=== PATIENT | female | born 1950 | race Caucasian/White ===

== ENCOUNTER → 2020-11-19 | Outpatient (CLI) | payer MEDICARE, OTHER ==
[~2020-11-19] MED LIST: CALCAVITDA; LEVSOD88; Voltaren100 GM
== END ==
LOC: LAB SHORT 15:50 → LAB 15:50
DX: D48.5 Neoplasm of uncertain behavior of skin (principal)
CPT/HCPCS: 88304

== ENCOUNTER 2024-12-27 22:06 | Inpatient (IN) | payer MEDICARE, OTHER ==
[~2024-12-27] VITALS: Ht 160 cm; Wt 62.0 kg
[~2024-12-27 22:06] MED LIST changes: +AMOCLA875 PO; +CALCIUM 600 MG1 EA18 PO; +SYNTHROID88 MCG PO
[2024-12-27 22:43] LABS: BASOPHILS ABSOLUTE AUTO 0.07 K/mm3 (0.00-0.23); BASOPHILS PERCENT AUTO 0 % (0-2); EOSINOPHILS ABSOLUTE AUTO 0.28 K/mm3 (0.00-0.68); EOSINOPHILS PERCENT AUTO 2 % (0-6); Hematocrit 39.0 % (33.0-51.0); Hemoglobin 13.1 g/dL (11.5-16.0); IMMATURE GRAN ABSOLUTE AUTO 0.09 K/mm3 (0.00-0.10); IMMATURE GRAN PERCENT AUTO 1 % (0-1); LYMPHOCYTES ABSOLUTE AUTO 1.86 K/mm3 (0.84-5.20); LYMPHOCYTES PERCENT AUTO 11 % (21-46); MONOCYTES ABSOLUTE AUTO 1.33 K/mm3 (0.16-1.47); MONOCYTES PERCENT AUTO 8 % (4-13); Mean Corpuscular HGB Conc 33.6 g/dL (31.5-36.5); Mean Corpuscular Volume 91 fL (80-100); NEUTROPHILS ABSOLUTE AUTO 14.02 K/mm3 (1.96-9.15); NEUTROPHILS PERCENT AUTO 80 % (41-73); NRBC ABSOLUTE 0.00 K/mm3 (0.00-0.02); NRBC Auto 0.0 /100 WBC (0.0-0.2); Platelet Count 263 K/mm3 (150-400); RDW Coefficient Variation 12.3 % (11.7-14.2); RDW Standard Deviation 41.3 fL (35.1-46.3)
[2024-12-27 23:05] LABS: Alanine Aminotransfer (ALT/SGP 16.0 U/L (12-78); Albumin, Blood 3.1 g/dL (3.4-5.0); Albumin/Globulin Ratio 0.8 (0.8-1.8); Anion Gap 10.0 mmol/L (3-11); Aspartate Aminotrans (AST/SGOT 15.0 U/L (12-37); Bilirubin, Total 0.7 mg/dL (0.1-1.0); Blood Urea Nitrogen 15.0 mg/dL (8-24); CO2, Blood 24.0 mmol/L (21-32); Calcium, Blood 8.5 mg/dL (8.5-10.1); Chloride, Blood 102.0 mmol/L (98-108); Creatinine, Blood 1.33 mg/dL (0.40-1.00); Globulin, Blood 4.1 g/dL (2.2-4.0); Glucose, Blood 124.0 mg/dL (70-99); Potassium, Blood 3.4 mmol/L (3.5-5.5); Sodium, Blood 133.0 mmol/L (136-145); Total Protein, Blood 7.2 g/dL (6.4-8.2)
[2024-12-27] MEDS ORDERED: Piperacillin/Tazobactam Sod 3.375 GM in NS 100 ML IV ONE (23:25)
[2024-12-27] MEDS ORDERED: NS 1,000 ML IV SCH (23:25)
[2024-12-27] MEDS ORDERED: FLU VACC TS2025(65UP)/MF59C/PF 45 MCG/0.5 ML SYRINGE IM SCH (23:45)
[2024-12-27] MEDS ORDERED: FentaNYL Citrate 50 MCG/ML 2 ML Injection IV PRN (23:45)
[2024-12-28] MEDS ORDERED: Ondansetron HCl 2 MG / ML 2ML Vial IV PRN (00:05)
[2024-12-28] MEDS ORDERED: Naloxone HCl 0.4MG / ML 1ML Vial IV PRN (00:05)
[2024-12-28] MEDS ORDERED: Piperacillin/Tazobactam Sod 3.375 GM in NS 100 ML IV SCH (06:00)
[2024-12-28] MEDS ORDERED: Lactobacil 2-S.Thermo-Bifido 1 1 Cap PO SCH (09:00)
[2024-12-28 10:46] LABS: BASOPHILS ABSOLUTE AUTO 0.05 K/mm3 (0.00-0.23); BASOPHILS PERCENT AUTO 0 % (0-2); EOSINOPHILS ABSOLUTE AUTO 0.22 K/mm3 (0.00-0.68); EOSINOPHILS PERCENT AUTO 2 % (0-6); Hematocrit 36.8 % (33.0-51.0); Hemoglobin 12.4 g/dL (11.5-16.0); IMMATURE GRAN ABSOLUTE AUTO 0.09 K/mm3 (0.00-0.10); IMMATURE GRAN PERCENT AUTO 1 % (0-1); LYMPHOCYTES ABSOLUTE AUTO 1.36 K/mm3 (0.84-5.20); LYMPHOCYTES PERCENT AUTO 11 % (21-46); MONOCYTES ABSOLUTE AUTO 0.74 K/mm3 (0.16-1.47); MONOCYTES PERCENT AUTO 6 % (4-13); Mean Corpuscular HGB Conc 33.7 g/dL (31.5-36.5); Mean Corpuscular Volume 93 fL (80-100); NEUTROPHILS ABSOLUTE AUTO 10.48 K/mm3 (1.96-9.15); NEUTROPHILS PERCENT AUTO 81 % (41-73); NRBC ABSOLUTE 0.00 K/mm3 (0.00-0.02); NRBC Auto 0.0 /100 WBC (0.0-0.2); Platelet Count 226 K/mm3 (150-400); RDW Coefficient Variation 12.5 % (11.7-14.2); RDW Standard Deviation 42.6 fL (35.1-46.3)
[2024-12-28 11:12] LABS: Alanine Aminotransfer (ALT/SGP 15.0 U/L (12-78); Albumin, Blood 2.8 g/dL (3.4-5.0); Albumin/Globulin Ratio 0.7 (0.8-1.8); Anion Gap 8.0 mmol/L (3-11); Aspartate Aminotrans (AST/SGOT 12.0 U/L (12-37); Bilirubin, Total 0.7 mg/dL (0.1-1.0); Blood Urea Nitrogen 12.0 mg/dL (8-24); CO2, Blood 27.0 mmol/L (21-32); Calcium, Blood 8.2 mg/dL (8.5-10.1); Chloride, Blood 110.0 mmol/L (98-108); Creatinine, Blood 1.32 mg/dL (0.40-1.00); Globulin, Blood 3.8 g/dL (2.2-4.0); Glucose, Blood 96.0 mg/dL (70-99); Magnesium, Blood 2.1 mg/dL (1.6-2.4); Potassium, Blood 4.2 mmol/L (3.5-5.5); Sodium, Blood 141.0 mmol/L (136-145); Thyroid Stimulating Hormone 0.808 uIU/mL (0.360-4.800); Total Protein, Blood 6.6 g/dL (6.4-8.2)
[2024-12-28 14:01] VITALS: BP 138/67
--- NOTE | 2024-12-28 14:37 | NUR ---
ADMIT PATIENT TO ROOM 231, AOX4, IND IN ROOM. IVF RUNNING. DENIES PAIN AT THIS TIME. CL DIET ORDERED. VSS. PLAN FOR IV ABX AND FLUIDS. CALL LIGHT IN REACH.
[2024-12-28] MEDS ORDERED: NS 1,000 ML IV SCH (15:05)
--- NOTE | 2024-12-28 18:10 | NUR ---
SHIFT SUMMARY PATIENT NEW ADMIT FOR DIVERTICULILTIS. CL DIET ORDERED. IV ABX, AND IVF RUNNING. PATIENT IND IN ROOM, VOIDING, PASSING GAS, DENIES N/V. REPORTS 04/20 PAIN. ABLE TO MAKE NEEDS KNOWN. VSS. CALL LIGHT IN REACH.
[2024-12-28 19:37] VITALS: BP 139/70
[2024-12-29 04:49] VITALS: BP 121/64
[2024-12-29 04:57] LABS: BASOPHILS ABSOLUTE AUTO 0.06 K/mm3 (0.00-0.23); BASOPHILS PERCENT AUTO 1 % (0-2); EOSINOPHILS ABSOLUTE AUTO 0.40 K/mm3 (0.00-0.68); EOSINOPHILS PERCENT AUTO 4 % (0-6); Hematocrit 32.7 % (33.0-51.0); Hemoglobin 11.0 g/dL (11.5-16.0); IMMATURE GRAN ABSOLUTE AUTO 0.10 K/mm3 (0.00-0.10); IMMATURE GRAN PERCENT AUTO 1 % (0-1); LYMPHOCYTES ABSOLUTE AUTO 1.48 K/mm3 (0.84-5.20); LYMPHOCYTES PERCENT AUTO 13 % (21-46); MONOCYTES ABSOLUTE AUTO 0.74 K/mm3 (0.16-1.47); MONOCYTES PERCENT AUTO 7 % (4-13); Mean Corpuscular HGB Conc 33.6 g/dL (31.5-36.5); Mean Corpuscular Volume 92 fL (80-100); NEUTROPHILS ABSOLUTE AUTO 8.46 K/mm3 (1.96-9.15); NEUTROPHILS PERCENT AUTO 75 % (41-73); NRBC ABSOLUTE 0.00 K/mm3 (0.00-0.02); NRBC Auto 0.0 /100 WBC (0.0-0.2); Platelet Count 213 K/mm3 (150-400); RDW Coefficient Variation 12.4 % (11.7-14.2); RDW Standard Deviation 41.8 fL (35.1-46.3)
[2024-12-29 05:41] LABS: Anion Gap 9.0 mmol/L (3-11); Blood Urea Nitrogen 10.0 mg/dL (8-24); CO2, Blood 24.0 mmol/L (21-32); Calcium, Blood 7.2 mg/dL (8.5-10.1); Chloride, Blood 110.0 mmol/L (98-108); Creatinine, Blood 1.36 mg/dL (0.40-1.00); Glucose, Blood 96.0 mg/dL (70-99); Potassium, Blood 3.8 mmol/L (3.5-5.5); Sodium, Blood 139.0 mmol/L (136-145)
--- NOTE | 2024-12-29 06:05 | NUR ---
NOC SUMMARY- PT REPORTS ONLY MINOR DISCOMFORT. PT HAS BEEN RESTING COMFORTABLY. PT TOLERATING PO INTAKE. PT REPORTS SEVERAL SMALL LOOSE STOOLS. PT REPORTS HAVING INTERMITENT PERIODS OF DIARRHEA FOR SEVERAL YEARS. PT REPORTS SHE USES IMMODIUM AT HOME DURING EPISODES OF DIARRHEA. PT VOIDING WELL. NO NEW ISSUES. CALL LIGHT IN REACH.
[2024-12-29 07:39] VITALS: BP 127/63
[2024-12-29] MEDS ORDERED: NS 250 ML IV PRN (14:15)
--- NOTE | 2024-12-29 14:30 | NUR ---
CARE ASSUMED OF PT. PT RESTING IN BED AWAKE AND CONVERSING WITH STAFF.
[2024-12-29 15:09] VITALS: BP 126/67
--- NOTE | 2024-12-29 17:25 | NUR ---
SHIFT SUMMARY ADMITTED ON 12/28 FOR SIGMOID DIVERTICULITIS. NO ACUTE CHANGES THIS SHIFT. A&O x4, VSS, HRR, LUNGS CLEAR. IND IN ROOM, CALLS APPROPRIATELY, MAKES NEEDS KNOWN. ADVANCED TO FULL LIQUID DIET TODAY, TOLERATING WELL. SEVERAL LOOSE BM'S TODAY, REPORTS INTERMITTENT DIARRHEA BASELINE AT HOME. VOIDING. STATES NO PAIN OR DISCOMFORT. STATES "ITCHY BUMPS" ON BACK, ABDOMEN, & LEGS TODAY, MD YOUNG NOTIFIED, CLARATIN ORDER RECIEVED & GIVEN. AMBULATED SEVERAL TIMES IN ROOM & HALLWAY. CURRENTLY RESTING IN BED, CALL LIGHT WITHIN REACH.
[2024-12-29 19:57] VITALS: BP 142/65
[2024-12-30 04:21] VITALS: BP 127/70
--- NOTE | 2024-12-30 04:26 | NUR ---
NOC SUMMARY- PT DENIES PAIN OR DISCOMFORT. PT REPORTS HAVING SEVERAL EPISODES OF DIARRHEA. PT VOIDING WELL. PT HAS BEEN ABLE TO REST COMFORTABLY. NO NEW ISSUES. CALL LIGHT IN REACH.
[2024-12-30 05:49] LABS: BASOPHILS ABSOLUTE AUTO 0.05 K/mm3 (0.00-0.23); BASOPHILS PERCENT AUTO 1 % (0-2); EOSINOPHILS ABSOLUTE AUTO 0.39 K/mm3 (0.00-0.68); EOSINOPHILS PERCENT AUTO 4 % (0-6); Hematocrit 34.3 % (33.0-51.0); Hemoglobin 11.6 g/dL (11.5-16.0); IMMATURE GRAN ABSOLUTE AUTO 0.05 K/mm3 (0.00-0.10); IMMATURE GRAN PERCENT AUTO 1 % (0-1); LYMPHOCYTES ABSOLUTE AUTO 1.85 K/mm3 (0.84-5.20); LYMPHOCYTES PERCENT AUTO 19 % (21-46); MONOCYTES ABSOLUTE AUTO 0.66 K/mm3 (0.16-1.47); MONOCYTES PERCENT AUTO 7 % (4-13); Mean Corpuscular HGB Conc 33.8 g/dL (31.5-36.5); Mean Corpuscular Volume 93 fL (80-100); NEUTROPHILS ABSOLUTE AUTO 6.71 K/mm3 (1.96-9.15); NEUTROPHILS PERCENT AUTO 69 % (41-73); NRBC ABSOLUTE 0.00 K/mm3 (0.00-0.02); NRBC Auto 0.0 /100 WBC (0.0-0.2); Platelet Count 243 K/mm3 (150-400); RDW Coefficient Variation 12.3 % (11.7-14.2); RDW Standard Deviation 41.8 fL (35.1-46.3)
[2024-12-30 06:06] LABS: Anion Gap 8.0 mmol/L (3-11); Blood Urea Nitrogen 8.0 mg/dL (8-24); CO2, Blood 26.0 mmol/L (21-32); Calcium, Blood 7.5 mg/dL (8.5-10.1); Chloride, Blood 112.0 mmol/L (98-108); Creatinine, Blood 1.4 mg/dL (0.40-1.00); Glucose, Blood 98.0 mg/dL (70-99); Potassium, Blood 3.9 mmol/L (3.5-5.5); Sodium, Blood 142.0 mmol/L (136-145)
[2024-12-30 07:37] VITALS: BP 137/70
[2024-12-30 15:34] VITALS: BP 135/82
--- NOTE | 2024-12-30 19:27 | NUR ---
SHIFT SUMMARY ADMITTED ON 12/28 FOR SIGMOID DIVERTICULITIS. A&O x4, VSS, HRR, LUNGS CLEAR. STATES NO PAIN, SLIGHT ABD DISCOMFORT. TOLERATING REGULAR DIET WELL, NO NAUSEA. INDEPENDENT IN ROOM. STATES SEVERAL DIARRHEA EPISODES TODAY, HX. INTERMITTENT DIARRHEA THE PAST SEVERAL YEARS. STATES "ITCHY BUMPS" ON CHEST, BACK, AND LEGS, CLARATIN ADMINISTRATION CONTINUED TODAY, RESOLVED ITCHINESS. ABLE TO MAKE NEEDS KNOWN. PLAN TO DC TOMORROW. CURRENTLY RESTING IN BED, CALL LIGHT WITHIN REACH.
[2024-12-30 19:38] VITALS: BP 134/70
[2024-12-31 03:59] VITALS: BP 120/70
[2024-12-31 05:22] LABS: BASOPHILS ABSOLUTE AUTO 0.05 K/mm3 (0.00-0.23); BASOPHILS PERCENT AUTO 1 % (0-2); EOSINOPHILS ABSOLUTE AUTO 0.44 K/mm3 (0.00-0.68); EOSINOPHILS PERCENT AUTO 4 % (0-6); Hematocrit 35.8 % (33.0-51.0); Hemoglobin 11.9 g/dL (11.5-16.0); IMMATURE GRAN ABSOLUTE AUTO 0.05 K/mm3 (0.00-0.10); IMMATURE GRAN PERCENT AUTO 1 % (0-1); LYMPHOCYTES ABSOLUTE AUTO 2.12 K/mm3 (0.84-5.20); LYMPHOCYTES PERCENT AUTO 20 % (21-46); MONOCYTES ABSOLUTE AUTO 0.60 K/mm3 (0.16-1.47); MONOCYTES PERCENT AUTO 6 % (4-13); Mean Corpuscular HGB Conc 33.2 g/dL (31.5-36.5); Mean Corpuscular Volume 92 fL (80-100); NEUTROPHILS ABSOLUTE AUTO 7.27 K/mm3 (1.96-9.15); NEUTROPHILS PERCENT AUTO 69 % (41-73); NRBC ABSOLUTE 0.00 K/mm3 (0.00-0.02); NRBC Auto 0.0 /100 WBC (0.0-0.2); Platelet Count 274 K/mm3 (150-400); RDW Coefficient Variation 12.3 % (11.7-14.2); RDW Standard Deviation 41.0 fL (35.1-46.3)
[2024-12-31 05:41] LABS: Anion Gap 7.0 mmol/L (3-11); Blood Urea Nitrogen 10.0 mg/dL (8-24); CO2, Blood 28.0 mmol/L (21-32); Calcium, Blood 7.8 mg/dL (8.5-10.1); Chloride, Blood 110.0 mmol/L (98-108); Creatinine, Blood 1.54 mg/dL (0.40-1.00); Glucose, Blood 98.0 mg/dL (70-99); Potassium, Blood 4.0 mmol/L (3.5-5.5); Sodium, Blood 141.0 mmol/L (136-145)
--- NOTE | 2024-12-31 05:41 | NUR ---
AEROSPACE QUALITY ENGINEER SUMMARY NO ACUTE CHANGES THIS SHIFT. PT TOLERATING DIET AND HAS DENIED ANY ABD PAIN THROUGH THE NIGHT. CONTINUES IV ZOSYN Q6 PER JUN. PT HOPING TO DISCHARGE LATER TODAY. VSS, DOUG.
[2024-12-31 07:26] VITALS: BP 137/72
[2024-12-31] MEDS ORDERED: VISBIOME 112.51 EACH PO (09:32)
[2024-12-31] MEDS ORDERED: ONDA4ODT MM (09:32)
[2024-12-31] MEDS ORDERED: AMOCLA500 PO (09:32)
--- NOTE | 2024-12-31 11:20 | NUR ---
DISCHARGE PATIENT VOIDING, HAVING BMS, TOLERATING PO INTAKE. WALKS HALLS, DENIES PAIN. PO ABX ORDERED. VSS. ALL DC INSTRUCITONS READ AND SIGNED. DIETARY INFORMATION IN PACKET, ALL MEDS FAXED TO [facility]. PATIENT LEAVES WITH SPOUSE TO PRIVATE CAR.
== END 2024-12-31 11:00 | disposition home or self-care (01) | DRG 392 ==
LOC: ER 22:06 → SURS 23:58 → ERHOLD 23:58 → SURS 12-28 13:53
PROVIDERS: Family Medicine; Student in an Organized Health Care Education/Training Program; ADMIT Student in an Organized Health Care Education/Training Program
DX: K57.32 Diverticulitis of large intestine without perforation or abscess without bleeding (principal); E87.1 Hypo-osmolality and hyponatremia; E87.6 Hypokalemia; D72.829 Elevated white blood cell count, unspecified; N18.31 Chronic kidney disease, stage 3a; E03.9 Hypothyroidism, unspecified; Z79.2 Long term (current) use of antibiotics; Z79.890 Hormone replacement therapy; Z79.899 Other long term (current) drug therapy; Z88.5 Allergy status to narcotic agent; Z85.850 Personal history of malignant neoplasm of thyroid; Z90.89 Acquired absence of other organs; Z98.890 Other specified postprocedural states; Z87.19 Personal history of other diseases of the digestive system; Z98.49 Cataract extraction status, unspecified eye
CPT/HCPCS: 36415; 80048; 80053; 83735; 84443; 85025; 96374; 99285-25; A9270; J2543; J3480; J7030

== ENCOUNTER 2025-01-29 22:28 | Emergency (ER) | payer MEDICARE, OTHER ==
[~2025-01-29] VITALS: Ht 162.6 cm; Wt 58.1 kg
[~2025-01-29 22:28] MED LIST changes: +AMOCLA500 PO; +ONDA4ODT MM; +VISBIOME 112.51 EACH PO
[2025-01-29 23:33] LABS: BASOPHILS ABSOLUTE AUTO 0.07 K/mm3 (0.00-0.23); BASOPHILS PERCENT AUTO 1 % (0-2); EOSINOPHILS ABSOLUTE AUTO 0.26 K/mm3 (0.00-0.68); EOSINOPHILS PERCENT AUTO 2 % (0-6); Hematocrit 41.9 % (33.0-51.0); Hemoglobin 14.0 g/dL (11.5-16.0); IMMATURE GRAN ABSOLUTE AUTO 0.04 K/mm3 (0.00-0.10); IMMATURE GRAN PERCENT AUTO 0 % (0-1); LYMPHOCYTES ABSOLUTE AUTO 2.14 K/mm3 (0.84-5.20); LYMPHOCYTES PERCENT AUTO 18 % (21-46); MONOCYTES ABSOLUTE AUTO 0.61 K/mm3 (0.16-1.47); MONOCYTES PERCENT AUTO 5 % (4-13); Mean Corpuscular HGB Conc 33.4 g/dL (31.5-36.5); Mean Corpuscular Volume 92 fL (80-100); NEUTROPHILS ABSOLUTE AUTO 8.56 K/mm3 (1.96-9.15); NEUTROPHILS PERCENT AUTO 73 % (41-73); NRBC ABSOLUTE 0.00 K/mm3 (0.00-0.02); NRBC Auto 0.0 /100 WBC (0.0-0.2); Platelet Count 260 K/mm3 (150-400); RDW Coefficient Variation 13.2 % (11.7-14.2); RDW Standard Deviation 43.8 fL (35.1-46.3)
[2025-01-29 23:35] LABS: Source, Urine Clean Catch
[2025-01-29 23:49] LABS: Bilirubin, Urine Neg (Neg); Glucose Qualitative, Urine Neg (Neg); Ketones, Urine Neg (Neg); Leukocyte Esterase, Urine 1+ (Neg); Protein, Urine Neg (Neg); Specific Gravity, Urine 1.010 (1.003-1.022); Urobilinogen, Urine NORM (Normal)
[2025-01-29 23:59] LABS: Color, Urine Yellow (P-Yellow)
[2025-01-30 00:01] LABS: Alanine Aminotransfer (ALT/SGP 21.0 U/L (12-78); Albumin, Blood 3.8 g/dL (3.4-5.0); Albumin/Globulin Ratio 1.0 (0.8-1.8); Anion Gap 8.0 mmol/L (3-11); Aspartate Aminotrans (AST/SGOT 21.0 U/L (12-37); Bilirubin, Total 0.7 mg/dL (0.1-1.0); Blood Urea Nitrogen 18.0 mg/dL (8-24); CO2, Blood 29.0 mmol/L (21-32); Calcium, Blood 9.3 mg/dL (8.5-10.1); Chloride, Blood 105.0 mmol/L (98-108); Creatinine, Blood 1.17 mg/dL (0.40-1.00); Globulin, Blood 3.7 g/dL (2.2-4.0); Glucose, Blood 105.0 mg/dL (70-99); Potassium, Blood 3.8 mmol/L (3.5-5.5); Sodium, Blood 138.0 mmol/L (136-145); Total Protein, Blood 7.5 g/dL (6.4-8.2)
[2025-01-30 00:02] LABS: Red Blood Cells, Urine Not Seen /hpf (0-2)
[2025-01-30 03:06] VITALS: BP 126/69
[2025-01-30] MEDS ORDERED: AMOCLA875 PO (03:13)
== END 2025-01-30 03:30 | disposition home or self-care (01) ==
LOC: ER 22:28
PROVIDERS: Physician Assistant
DX: K57.20 Diverticulitis of large intestine with perforation and abscess without bleeding (principal); N18.30 Chronic kidney disease, stage 3 unspecified; Z88.5 Allergy status to narcotic agent; Z79.890 Hormone replacement therapy; Z79.899 Other long term (current) drug therapy
CPT/HCPCS: 74177; 80053; 81001; 85025; 87086; 99284-25; A9270; Q9967

== ENCOUNTER 2025-03-19 05:52 | Day surgery (SDC) | payer MEDICARE, OTHER ==
[2025-03-19] VITALS (15 sets, daily range): BP systolic 109–157; BP diastolic 60–124
[~2025-03-19 05:52] MED LIST changes: -CALCIUM 600 MG1 EA18 PO; +CALCIUM CIT 311 EAC7 PO
--- NOTE | 2025-03-19 07:01 | NUR ---
Ambulatory in Day Surgery. Patient confirms NPO status and agrees with scheduled surgery. History, Chart, Medications and Allergies reviewed before start of procedure. Patient states colon prep results clear/Yellow. Patient States Post-Procedure ride home has been arranged.
--- NOTE | 2025-03-19 07:04 | NUR ---
03/19/25 0704 Tamar López CONFIRMED AND REVIEWED H&P, MEDCICATIONS, ALLERGIES, MEDICAL HISTORY, RESPIRATORY HISTORY, VITAL SIGNS, 3-LEAD EKG, CONSENTS, AND PHYSICIAN ORDERS. PATIENT CONFIRMS NPO STATUS AND AGREES WITH SCHEDULED PROCEDURE. MONITOR INTACT WITH CONTINUOUS PULSE OXIMETRY, CAPNOGRAPHY, 3-LEAD EKG, INTERMITTENT BP. SUPPLEMENTAL O2 TO BE TITRATED THROUGHOUT PROCEDURE TO MAINTAIN O2 SATURATION ABOVE 90%. PATIENT DETERMINED TO BE ASA APPROPRIATE FOR PROPOFOL SEDATION PRIOR TO START OF PROCEDURE BY DR. ROUSSEAU
== END 2025-03-19 23:38 | disposition home or self-care (01) ==
LOC: ORSCMMR 05:52 → ORD 07:30 → ORSCMMR 07:30
PROVIDERS: Surgery
PROC: 0DBM8ZX Excision of Descending Colon, Via Natural or Artificial Opening Endoscopic, Diagnostic (ICD-10-PCS; principal; 2025-03-19 07:30)
DX: K57.92 Diverticulitis of intestine, part unspecified, without perforation or abscess without bleeding (principal); D12.4 Benign neoplasm of descending colon; Z98.890 Other specified postprocedural states; N18.30 Chronic kidney disease, stage 3 unspecified; Z85.850 Personal history of malignant neoplasm of thyroid; Z79.899 Other long term (current) drug therapy; Z87.891 Personal history of nicotine dependence
CPT/HCPCS: 88305; J2704; J7120

== ENCOUNTER 2025-03-20 06:05 | Inpatient (IN) | payer MEDICARE, OTHER ==
[2025-03-20] VITALS (16 sets, daily range): BP systolic 107–156; BP diastolic 55–90
[~2025-03-20] VITALS: Ht 162.6 cm; Wt 57.2 kg
[2025-03-20] MEDS ORDERED: CeFAZolin Sodium 2,000 MG in NS 100 ML IV SCH (06:20)
[2025-03-20] MEDS ORDERED: Heparin Sodium,Porcine 5,000 UNIT/0.5 ML SDV SC SCH (06:20)
[2025-03-20] MEDS ORDERED: FentaNYL Citrate 50 MCG/ML 2 ML Injection ONE (07:04)
[2025-03-20] MEDS ORDERED: Metoclopramide HCl 5MG / ML 2ML Vial IV PRN (07:05)
[2025-03-20] MEDS ORDERED: Ondansetron HCl 2 MG / ML 2ML Vial IV PRN ×2 (07:05→11:20)
[2025-03-20] MEDS ORDERED: HydrALAZINE HCl 20 MG / ML 1ML Vial IV PRN (07:10)
[2025-03-20] MEDS ORDERED: FentaNYL Citrate 50 MCG/ML 2 ML Injection IV PRN ×2 (07:10)
[2025-03-20] MEDS ORDERED: ePHEDrine Sulfate 50 MG/ML 1ML Injection IV PRN (07:10)
[2025-03-20] MEDS ORDERED: Albuterol 2.5 MG/3 ML VIAL INH PRN (07:10)
[2025-03-20] MEDS ORDERED: Bupivacaine 0.5% HCl 5 MG/ML 30MLVIAL ONE (07:19)
[2025-03-20] MEDS ORDERED: Metoclopramide HCl 5MG / ML 2ML Vial ONE ×2 (08:05→10:59)
[2025-03-20] MEDS ORDERED: Rocuronium Bromide 10 MG/ML 5ML Injection IV ONE (08:05)
[2025-03-20] MEDS ORDERED: Ondansetron HCl 2 MG / ML 2ML Vial ONE (08:05)
[2025-03-20] MEDS ORDERED: Phenylephrine HCl 100 MCG/ML-NS 10MLSYR (1MG/10ML) ONE (08:05)
[2025-03-20] MEDS ORDERED: MetroNIDAZOLE 500MG/NS 100 ml 100 ML IV SCH (08:10)
[2025-03-20] MEDS ORDERED: Sugammadex Sodium 200 MG/2ML SDV (100 MG/ML) ONE (08:20)
[2025-03-20] MEDS ORDERED: ePHEDrine Sulfate 50 MG/ML 1ML Injection ONE (08:39)
[2025-03-20] MEDS ORDERED: HYDROmorphone HCl/Pf 1MG SYR ONE (08:56)
[2025-03-20] MEDS ORDERED: HYDROmorphone HCl/Pf 1MG SYR IV PRN (11:20)
[2025-03-20] MEDS ORDERED: FLU VACC TS2025(65UP)/MF59C/PF 45 MCG/0.5 ML SYRINGE IM SCH (11:35)
--- NOTE | 2025-03-20 13:59 | NUR ---
POST OP: REPORT RECEIVED FROM ETHANOL OPERATOR AT BEDSIDE. PT TO UNIT AT 1115, A/O, VSS. SURGICAL SITES WNL, SEPULVEDA DRAINING. PT ORIENTED TO ROOM AND CALL LIGHT IN REACH.
--- NOTE | 2025-03-20 18:55 | NUR ---
SUMMARY: NO ACUTE CHANGE SINCE POST OP. VSS, A/O. PT AMBULATING. PAIN APPEARS TO BE MANAGED. SEPULVEDA DC'D AND PT VOIDING. SURGICAL SITES WNL, NO CONCERNS. PLAN IS DC TOMORROW.
[2025-03-21 02:20] VITALS: BP 107/57
[2025-03-21 05:11] LABS: Hematocrit 35.0 % (33.0-51.0); Hemoglobin 11.8 g/dL (11.5-16.0); Mean Corpuscular HGB Conc 33.7 g/dL (31.5-36.5); Mean Corpuscular Volume 90 fL (80-100); NRBC ABSOLUTE 0.00 K/mm3 (0.00-0.02); NRBC Auto 0.0 /100 WBC (0.0-0.2); Platelet Count 206 K/mm3 (150-400); RDW Coefficient Variation 13.2 % (11.7-14.2); RDW Standard Deviation 43.2 fL (35.1-46.3)
[2025-03-21 05:27] LABS: Anion Gap 8.0 mmol/L (3-11); Blood Urea Nitrogen 15.0 mg/dL (8-24); CO2, Blood 27.0 mmol/L (21-32); Calcium, Blood 7.9 mg/dL (8.5-10.1); Chloride, Blood 99.0 mmol/L (98-108); Creatinine, Blood 1.09 mg/dL (0.40-1.00); Glucose, Blood 133.0 mg/dL (70-99); Magnesium, Blood 1.7 mg/dL (1.6-2.4); Potassium, Blood 3.9 mmol/L (3.5-5.5); Sodium, Blood 130.0 mmol/L (136-145)
--- NOTE | 2025-03-21 05:54 | NUR ---
SHIFT SUMMARY POD 1 S/P SIGMOID COLECTOMY. BRUISING NOTED X 4 WITH ABD INCISIONS; NO EXUDATE OR ODOR. PAIN MANAGED PER EMAR. JUAN C CL DIET, DENIES N/V. IS VOIDING AND IND IN ROOM. DENIES FLATUS. IV TO HAND PATENT/SL. IS A/OX4 WITH VSS, ON RA. ABLE TO MAKE NEEDS KNOWN. IS CURRENTLY RESTING IN BED WITH EYES CLOSED, RESP EVEN AND HAS CALL LIGHT IN REACH. PLAN TO ADVANCE DIET TODAY TOLERATED. ENCOURAGED AMBULATION IN HALLWAYS. WILL GIVE REPORT TO ONCOMING RN.
--- NOTE | 2025-03-21 06:26 | NUR ---
UPDATE PT REPORTS PASSING FLATUS. CONTINUES TO JUAN C CL, DENIES N/V. IS VOIDING AND IND TO BATHROOM. ENCOURAGED AMB IN HALLWAYS JUAN C. RN IN ROOM AT THIS TIME FOR PRN PAIN MEDICATION ADMINISTRATION, REPORTS ABD 4/10, MEDICATED X 1 5MG OXY. IS AWAKE IN ROOM ON PHONE. PLAN FOR RN TO RETURN FOR BEDSIDE REPORT W/DAY RN AND F/U PAIN ASSESSMENT. PT VERBALIZED AGREEMENT TO PLAN. HAS CALL LIGHT IN REACH AND DENIES FUTHER CONCERNS AT THIS TIME.
[2025-03-21 07:27] VITALS: BP 104/60
[2025-03-21] MEDS ORDERED: Enoxaparin 40 MG/0.4 ML SYR SC SCH (09:00)
[2025-03-21] MEDS ORDERED: NS 1,000 ML IV ONE (09:20)
--- NOTE | 2025-03-21 11:51 | NUR ---
ASSUMED CARE OF PT FROM ELENITA Fernandez RN. PT RESTING IN BED, DENIES ANY NEEDS. INDEPENDENT IN ROOM. CALL LIGHT IN REACH
--- NOTE | 2025-03-21 11:53 | NUR ---
REPORT OFF TO DICK PURDY TO ASSUME CARE.
[2025-03-21 15:46] VITALS: BP 111/57
[2025-03-21 19:45] VITALS: BP 122/59
[2025-03-22 04:13] VITALS: BP 135/62
--- NOTE | 2025-03-22 05:19 | NUR ---
SHIFT SUMMARY PT IS POD 2 S/P COLECTOMY. ABD INCISIONS CONT TO HAVE BRUISING AND REDNESS, NO CHANGES NOTED SINCE PREVIOUS NIGHT. PT IS JUAN C FULL LIQUID DIET. IS VOIDING AND PASSING FLATUS. AMB IND IN HALLWAY AND ROOM. IV PATENT/SL. MEDICATED X2 FOR PAIN PER EMAR, OXY AND 650MG TYLENOL. IS A/OX4 WITH VSS ON RA. PT REPORTS SLEEPING SOUNDLY T/O NIGHT. SHE RESTING IN BED, EATING APPLESAUCE. HAS CALL LIGHT IN REACH. DENIES NEEDS. REF SCDS. PLAN TO ADVANCE DIET TODAY JUAN C. WILL GIVE REPORT TO ONCOMING RN.
[2025-03-22 06:15] LABS: Anion Gap 8.0 mmol/L (3-11); Blood Urea Nitrogen 11.0 mg/dL (8-24); CO2, Blood 28.0 mmol/L (21-32); Calcium, Blood 7.6 mg/dL (8.5-10.1); Chloride, Blood 99.0 mmol/L (98-108); Creatinine, Blood 1.08 mg/dL (0.40-1.00); Glucose, Blood 119.0 mg/dL (70-99); Potassium, Blood 3.9 mmol/L (3.5-5.5); Sodium, Blood 131.0 mmol/L (136-145)
[2025-03-22 06:54] VITALS: BP 125/63
--- NOTE | 2025-03-22 10:02 | NUR ---
DISCHARGE PATIENT AOX4, POD 1 LAP PARTIAL COLLECTOMY. LAP SITES C/D/I. PASSING GAS, DENIES N/V. TOLERATING PO INTAKE. WALKING HALLWAYS. IV IS TAKEN OUT INTACT. AND VSS. ALL INSTRUCTIONS READ AND SIGNED PATIENT IS WAITING FOR RIDE HOME.
[2025-03-22 10:05] VITALS: BP 126/72
== END 2025-03-22 10:39 | disposition home or self-care (01) | DRG 330 ==
LOC: SURS 06:05
PROVIDERS: ADMIT Surgery
PROC: 8E0W4CZ Robotic Assisted Procedure of Trunk Region, Percutaneous Endoscopic Approach (ICD-10-PCS; 2025-03-20)
PROC: 0T9B70Z Drainage of Bladder with Drainage Device, Via Natural or Artificial Opening (ICD-10-PCS; 2025-03-20)
PROC: 3E03329 Introduction of Other Anti-infective into Peripheral Vein, Percutaneous Approach (ICD-10-PCS; 2025-03-20)
PROC: 0DTN4ZZ Resection of Sigmoid Colon, Percutaneous Endoscopic Approach (ICD-10-PCS; principal; 2025-03-20 07:30)
DX: K57.20 Diverticulitis of large intestine with perforation and abscess without bleeding (principal); E87.1 Hypo-osmolality and hyponatremia; E86.1 Hypovolemia; N18.30 Chronic kidney disease, stage 3 unspecified; I12.9 Hypertensive chronic kidney disease with stage 1 through stage 4 chronic kidney disease, or unspecified chronic kidney disease; E89.0 Postprocedural hypothyroidism; Z88.5 Allergy status to narcotic agent; Z79.890 Hormone replacement therapy; Z85.828 Personal history of other malignant neoplasm of skin; Z87.891 Personal history of nicotine dependence
CPT/HCPCS: 36415; 80048; 82947; 83735; 85027; 88307; A9270; J0690; J1171; J1644; J1650; J2371; J2405; J2704; J2765; J3010; J7030; J7120